=== PATIENT | female | born 1965 | race Caucasian/White ===

== ENCOUNTER 2023-10-20 18:57 | Emergency (ER) | payer OTHER ==
[2023-10-20 19:09] VITALS: BMI 23.2
[2023-10-20 20:04] LABS: BASO % 0.5 % (0-2.0); EOS % 0.1 % (0-4.5); HEMATOCRIT 39.8 % (32.4-45.2); HEMOGLOBIN 13.8 GM/dL (10.7-15.3); LYMPH % 19.6 % (8-40); MCHC 34.6 g/dl (32.0-36.0); MEAN CELL VOLUME 89.6 fl (80-96); MEAN PLT VOLUME 10.8 fl (7.5-11.1); MONO % 8.2 % (3.8-10.2); NEUT % 71.6 % (42.8-82.8); PLATELET COUNT 250 10^3/uL (134-434); RBC 4.44 M/mm3 (3.60-5.2); RDW 14.2 % (11.6-15.6); WHITE BLOOD COUNT 13.4 K/mm3 (4.0-10.0)
[2023-10-20] MEDS: SODIUM CHLORIDE 500 ML IV STA ×2 (20:10)
[2023-10-20] MEDS ORDERED: ACETAMINOPHEN INJECTION 100 ML ONE (20:15)
[2023-10-20] MEDS ORDERED: KETOROLAC TROMETHAMINE 15 MG/ML VIAL ONE ×2 (20:15→20:16)
[2023-10-20] MEDS ORDERED: CEFTRIAXONE 1 GM/50 ML BAG ONE (20:16)
[2023-10-20] MEDS: ACETAMINOPHEN 1000 MG/100 ML BAG IVPB ONE (20:19)
[2023-10-20] MEDS: KETOROLAC TROMETHAMINE 15 MG/ML VIAL IVPUSH ONE (20:20)
[2023-10-20 20:24] LABS: POTASSIUM 4.7 mmol/L (3.5-5.1)
[2023-10-20 20:27] LABS: ALBUMIN 3.4 g/dl (3.4-5.0); BLOOD UREA NITROGEN 16.8 mg/dL (7-18); CALCIUM 8.7 mg/dL (8.5-10.1)
[2023-10-20 20:31] LABS: CREATININE 0.8 mg/dL (0.55-1.3)
[2023-10-20 20:32] LABS: BILIRUBIN,TOTAL 0.6 mg/dL (0.2-1); TOT PROT 7.9 g/dl (6.4-8.2)
[2023-10-20 20:54] VITALS: PULSE 84; RESP 16
[2023-10-20 21:14] LABS: EPI CELLS 11 /uL (0-25.1); HYALINE CASTS 0 /uL (0-3.1); URINE APPEARANCE CLEAR; URINE BACTERIA 17 /uL (0-1359); URINE BILIRUBIN NEGATIVE (NEGATIVE); URINE COLOR YELLOW; URINE GLUCOSE (UA) 3+ (NEGATIVE); URINE KETONE TRACE (NEGATIVE); URINE LEUK ESTERASE NEGATIVE (NEGATIVE); URINE NITRITE NEGATIVE (NEGATIVE); URINE PROTEIN 2+ (NEGATIVE); URINE RBC 41 /uL (0-23.9); URINE WBC 42 /uL (0-25.8)
[2023-10-20 21:16] VITALS: BP 110/80; TEMP 99.1
[2023-10-20 21:33] LABS: HIV INTERPRETATION NEGATIVE (NEGATIVE)
[2023-10-20] MEDS ORDERED: AZITHROMYCIN IVPB 500 MG/250 ML BAG IVPB ONE (21:50)
[2023-10-20] MEDS: AZITHROMYCIN IVPB 500 MG in DEXTROSE 5%-WATER - 250 ML IVPB ONE (22:32)
== END 2023-10-20 22:51 | disposition home or self-care (01) ==
LOC: JER 18:57
PROC: 3E03329 Introduction of Other Anti-infective into Peripheral Vein, Percutaneous Approach (ICD-10-PCS; principal; 2023-10-20)
PROC: 3E033NZ Introduction of Analgesics, Hypnotics, Sedatives into Peripheral Vein, Percutaneous Approach (ICD-10-PCS; 2023-10-20)
PROC: 3E03329 Introduction of Other Anti-infective into Peripheral Vein, Percutaneous Approach (ICD-10-PCS; 2023-10-20)
PROC: 3E0333Z Introduction of Anti-inflammatory into Peripheral Vein, Percutaneous Approach (ICD-10-PCS; 2023-10-20)
PROC: 3E0337Z Introduction of Electrolytic and Water Balance Substance into Peripheral Vein, Percutaneous Approach (ICD-10-PCS; 2023-10-20)
DX: J18.9 Pneumonia, unspecified organism (principal); R50.9 Fever, unspecified; R30.0 Dysuria; R09.81 Nasal congestion; R05.9 Cough, unspecified; R35.0 Frequency of micturition; M54.6 Pain in thoracic spine; R07.81 Pleurodynia; Z20.822 Contact with and (suspected) exposure to COVID-19
CPT/HCPCS: 0241U-QW; 36415; 71046-TC-FY; 80053; 81003; 83605; 83690; 84484; 85025; 86803; 87086; 87389; 93005; 93010; 99285-25; J0131